=== PATIENT | male | born 2000 | race Caucasian/White ===

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

== ENCOUNTER 2022-03-03 11:55 | Emergency (ER) | payer MEDICAID ==
[~2022-03-03] VITALS: Ht 185.4 cm; Wt 95.4 kg
[2022-03-03] MEDS ORDERED: FLOXIN OTIC0.3 % AS (12:25)
[2022-03-03 12:49] VITALS: BP 130/77
== END 2022-03-03 13:05 | disposition home or self-care (01) ==
LOC: ED 11:55
DX: H60.92 Unspecified otitis externa, left ear (principal)

== ENCOUNTER 2022-05-02 00:55 | Emergency (ER) | payer OTHER, BC, MEDICAID ==
[~2022-05-02] VITALS: Ht 185.4 cm; Wt 90.9 kg
[~2022-05-02 00:55] MED LIST changes: +FLOXIN OTIC0.3 % AS
[2022-05-02 01:01] VITALS: BP 139/76
[2022-05-02 01:30] VITALS: BP 129/73
[2022-05-02 02:01] VITALS: BP 116/68
[2022-05-02 02:18] VITALS: BP 116/68
[2022-05-02] MEDS ORDERED: ULTRAM50 M1 PO (02:21)
[2022-05-02] MEDS ORDERED: AMOXICILLIN500 MG PO (02:21)
== END 2022-05-02 02:38 | disposition home or self-care (01) | DRG 605 ==
LOC: ED 00:55
PROC: 0HQGXZZ Repair Left Hand Skin, External Approach (ICD-10-PCS; principal; 2022-05-02)
DX: S61.217A Laceration without foreign body of left little finger without damage to nail, initial encounter (principal); W23.0XXA Caught, crushed, jammed, or pinched between moving objects, initial encounter; Y92.89 Other specified places as the place of occurrence of the external cause; Y99.0 Civilian activity done for income or pay

== ENCOUNTER 2022-05-09 13:49 | Emergency (ER) | payer BC, MEDICAID ==
[~2022-05-09] VITALS: Ht 185.4 cm; Wt 90.0 kg
[~2022-05-09 13:49] MED LIST changes: +ULTRAM50 M1 PO
[2022-05-09 13:53] VITALS: BP 129/73
== END 2022-05-09 14:50 | disposition home or self-care (01) | DRG 950 ==
LOC: ED 13:49
DX: S61.213D Laceration without foreign body of left middle finger without damage to nail, subsequent encounter (principal); X58.XXXD Exposure to other specified factors, subsequent encounter

== ENCOUNTER 2024-10-04 17:48 | Emergency (ER) | payer BC ==
[~2024-10-04] VITALS: Ht 185.4 cm; Wt 99.7 kg
[2024-10-04] VITALS (10 sets, daily range): BP systolic 108–145; BP diastolic 59–101
[2024-10-04] MEDS ORDERED: methylPREDNISolone SODIUM SUCC 125 MG/2 ML SDV IM ONE (18:30)
[2024-10-04] MEDS ORDERED: IPRATROPIUM-Albuterol 0.5MG-2.5MG/3 ML NEB ONE (18:30)
[2024-10-04] MEDS ORDERED: AZITHROMYCIN 250 MG/TAB PO ONE (19:50)
[2024-10-04] MEDS ORDERED: ZYRTEC10 MG PO (19:52)
[2024-10-04] MEDS ORDERED: ZITHROMAX Z-PA250 MG PO (19:52)
[2024-10-04] MEDS ORDERED: PREDNISONE20 MG PO (19:52)
[2024-10-04] MEDS ORDERED: IPRATROPIU0.5 MG/3 M IN (19:56)
[2024-10-04] MEDS ORDERED: NEBULIZER KIT/TUBING IN (19:56)
== END 2024-10-04 20:37 | disposition home or self-care (01) | DRG 203 ==
LOC: ED 17:48
DX: J45.909 Unspecified asthma, uncomplicated (principal); Z20.822 Contact with and (suspected) exposure to COVID-19